=== PATIENT | female | born 1995 | race Caucasian/White ===

== ENCOUNTER 2018-08-24 10:37 | Emergency (ER) | payer OTHER ==
[~2018-08-24] VITALS: Ht 160 cm; Wt 122.9 kg
--- OUTSIDE RECORDS SUMMARY | 2018-08-24 10:42 | XMS REPORT | Continuity of Care Document ---
Author Organization Unknown Address Unknown Allergies There is no data. Medications There is no data. Problems There is no data. Procedures There is no data. Results Test Result Range TSH w/ FREE T4 - 07/21/18 10:15 TSH 1.23 mIU/L NRG T4, FREE 1.1 ng/dL 0.8-1.8 Encounters ACCT No. Visit Date/Time Discharge Status Pt. Type Provider Facility Loc./Unit Complaint [id number] 08/14/2018 10:00:00 08/14/2018 23:59:59 [facility] Outpatient AMBROCIO CABRAL [facility] [id number] 07/21/2018 09:00:00 Document Registration
--- OUTSIDE RECORDS SUMMARY | 2018-08-24 10:42 | XMS REPORT ---
Author Author MARI GARCIA Organization [facility] Address [address] [place] [address] Phone Unavailable Care Team Providers Care Wire Mesh Gate Assembler Name Role Phone MARI GARCIA Unavailable Unavailable PROBLEMS Unknown Problems ALLERGIES No Known Allergies ENCOUNTERS Encounter Location Date Diagnosis [id number] [address] [place] [address] Aug, Encounter for dental exam and cleaning w/o abnormal findings Z01.20 IMMUNIZATIONS No Known Immunizations SOCIAL HISTORY Never Assessed REASON FOR VISIT Adult Outreach [facility]-staff PLAN OF CARE Activity Details Follow Up prn Reason:Patient has private dentist VITAL SIGNS MEDICATIONS Unknown Medications RESULTS No Results PROCEDURES Procedure Date Ordered Result Body Site PROPHYLAXIS - ADULT September 24, 2017 INSTRUCTIONS MEDICATIONS ADMINISTERED No Known Medications MEDICAL (GENERAL) HISTORY Type Description Date Medical History 7 1/2 mos [id number] care-Dr. Javed in [facility]
[2018-08-24] MEDS ORDERED: LIDOCAINE/EPI 2% 1:100,00 (XYLOCAINE) 20 ML VIAL ONE (11:29)
[2018-08-24] MEDS ORDERED: CLINDAMYCIN 150 MG (CLEOCIN) CAP PO ONE (11:45)
[2018-08-24] MEDS ORDERED: LIDOCAINE/EPI 2% 1:100,00 (XYLOCAINE) 20 ML VIAL INJ ONE (11:45)
[2018-08-24] MEDS ORDERED: CLIN150C17 PO (11:45)
--- NOTE | 2018-08-24 11:45 | ED Integumentary General ---
General Chief Complaint: Skin/Wound Problems Stated Complaint: SPIDER BITE ON LT THIGH Source: patient Exam Limitations: no limitations History of Present Illness Date Seen by Provider: August 24, 2018 Time Seen by Provider: 11:25 Initial Comments This is a 23 y/o f who presents for evaluation of progressive L thigh swelling/erythema over the past 4-5 days. H/o previous abscesses that have required drainage. No fever, no nausea, no vomiting. local pain only, 3-4/10, sharp, worse with touch. Allergies and Home Medications Allergies Coded Allergies: amoxicillin (Unverified Adverse Reaction, Unknown, 08/24/18) clavulanic acid (Unverified Adverse Reaction, Unknown, 08/24/18) Home Medications Clindamycin HCl 150 Mg Capsule, 3 TAB PO TID Prescribed by: REBECCA MORALES on 08/24/18 [id number] Patient Home Medication List Home Medication List Reviewed: Yes Review of Systems Review of Systems Constitutional: No chills, No fever, No weakness Respiratory: no symptoms reported Cardiovascular: no symptoms reported Gastrointestinal: no symptoms reported Musculoskeletal: no symptoms reported Skin: rash Psychiatric/Neurological: No Symptoms Reported Endocrine: No Symptoms Reported All Other Systems Reviewed Negative Unless Noted: Yes (Negative excepted noted.) Physical Exam Vital Signs Capillary Refill : General Appearance: no apparent distress, other (obese) HEENT: PERRL/EOMI Cardiovascular: no edema Respiratory: no accessory muscle use Extremities: normal range of motion, no pedal edema Neurologic/Psychiatric: no motor/sensory deficits, alert, normal mood/affect, oriented x 3 Skin: other (5cm circular area of erythema to lateral aspect of L thigh. Central area with small drainage. Area diffusely tender and warm to touch. ) Procedures/Interventions I&D : Blade Size: 15 I & D Procedure: betadine prep Progress Approx 5cc of purulent discharge. Tolerated well. Skin numbed with Lidocain/Epe 2% with 3 cc Progress/Results/Core Measures Results/Orders My Orders Orders - REBECCA MORALES DO Lidocaine/Epi 2% 1:100,000 (Xylocaine/Ep (08/24/18 11:29) Clindamycin Capsule (Cleocin Capsule) (08/24/18 11:45) Lidocaine/Epi 2% 1:100,000 (Xylocaine/Ep (08/24/18 11:45) Medications Given in ED Current Medications Medications Dose Ordered Sig/Matthew Route Start Time Stop Time Status Last Admin Dose Admin Lidocaine/ Epinephrine 20 ml ONCE ONCE INJ 08/24/18 11:45 08/24/18 11:46 08/24/18 11:40 20 ML Progress Progress Note : Progress Note Tolerated I&D well. Discussed wound care. Non-toxic appearing. Will start on Clindamycin. Has tolerated Before. Denies h/o MRSA. Advised PCP follow up. ER return precautions given. She verbalized understanding. All questions answered. Initial ECG Impression Time: 11:42 Departure Impression Primary Impression: Abscess Additional Impression: Soft tissue infection Disposition: HOME, SELF-CARE Condition: Stable Departure-Patient Inst. Decision time for Depature: 11:42 Referrals: AMBROCIO CABRAL MD (PCP/Family) Primary Care Physician Patient Instructions: Folliculitis (DC), Abscess Incision and Drainage Add. Discharge Instructions: Please read the attached handout. Take the entire course of antibiotics. Keep the area clean. You can soak in a warm Epson Salt bath to encourage further drainage over the next 24-48hrs. Take Tylenol/Ibuprofen for pain. Return to the ER if your symptoms worsen or you have any other concerns. All discharge instructions reviewed with patient and/or family. Voiced understanding. Scripts Clindamycin HCl (Clindamycin HCl) 150 Mg Capsule 3 TAB PO TID for 7 Days, #63 CAP Prov: REBECCA MORALES DO 08/24/18 REBECCA MORALES DO August 24, 2018 11:45
[2018-08-24 11:55] VITALS: BP 135/75
== END 2018-08-24 11:55 | disposition home or self-care (01) ==
LOC: ER FS 10:39
DX: L02.416 Cutaneous abscess of left lower limb (principal); Z88.0 Allergy status to penicillin; Z88.8 Allergy status to other drugs, medicaments and biological substances
CPT/HCPCS: 10060

== ENCOUNTER → 2019-10-12 | Outpatient (CLI) | payer BC ==
[~2019-10-12] MED LIST: CLIN150C17 PO
--- NOTE | 2019-10-12 12:53 | Diagnostic Imaging Report ---
INDICATION: PAIN COMPARISON: None. FINDINGS: 3 views of the right ankle were obtained. There is no acute fracture or dislocation. No focal osseous lesions are seen. The surrounding soft tissue structures are unremarkable. There are no radiopaque foreign bodies. IMPRESSION: 1. No acute fracture or dislocation in the right ankle. Dictated by: Dictated on workstation # [id number]
--- NOTE | 2019-10-12 12:56 | Diagnostic Imaging Report ---
INDICATION: Foot pain COMPARISON: None. FINDINGS: 3 views of the right foot demonstrate no acute fracture or dislocation. There are no focal osseous lesions. There is no soft tissue swelling. Joint spaces are well maintained. No radiopaque foreign bodies are seen. IMPRESSION: No acute fractures or dislocations of the right foot. Dictated by: Dictated on workstation # [id number]
== END ==
LOC: RAD FS 10:49
PROVIDERS: ATTEND Nurse Practitioner Family
DX: M79.671 Pain in right foot (principal); M25.571 Pain in right ankle and joints of right foot
CPT/HCPCS: 73610; 73630